=== PATIENT | female | born 1965 | race Caucasian/White ===

== ENCOUNTER 2021-05-14 06:58 | Day surgery (SDC) | payer OTHER ==
[2021-05-14] MEDS ORDERED: Lactated Ringers 1,000 ML IV SCH (07:00)
[2021-05-14] MEDS ORDERED: Sodium Chloride 0.9% 10 ML Syringe FLUSH PRN (07:00)
[2021-05-14] MEDS ORDERED: Propofol 200 MG/20 ML SDV ONE ×2 (07:38→09:33)
[2021-05-14] MEDS ORDERED: fentaNYL 100 MCG/2 ML SDV ONE (07:38)
[2021-05-14 09:58] VITALS: BP 126/64; PULSE 72
--- NOTE | 2021-05-14 10:20 | OR ---
PREOPERATIVE DIAGNOSIS: History of colon polyps. POSTOPERATIVE DIAGNOSIS: History of colon polyps. PROCEDURE PERFORMED: Total flexible colonoscopy with biopsies. ANESTHESIA: MAC anesthesia. COMPLICATIONS: None apparent. BLOOD LOSS: Minimal. FINDINGS: Sigmoid polyp, 3 mm, cold forceps. Start time 0907, cecum 0918, stop 0929. BOWEL PREP: [place] class 3. INDICATIONS: Ms. Mendoza is a 56-year-old female with a history of colon polyps. She denies any bloody or dark black stools and has no family history of colon cancer. She is here for colonoscopy. Her last scope was 6 years ago. DETAILS OF PROCEDURE: After informed consent was obtained, the patient was brought to the procedure room, placed in left lateral decubitus position. MAC anesthesia was induced per Anesthesia colleagues without incident. The colonoscope was introduced in the rectum and advanced all the way to the cecum. Appendiceal orifice and terminal ileum were photographed to confirm the cecum. The colonoscope was then slowly withdrawn. No pathology was identified except for what was mentioned in the above finding section. A retroflexed view was obtained, and the colonoscope was removed. The patient was awoken from anesthesia by Anesthesia colleagues without incident. PATHOLOGY: Colon, sigmoid, polyp Hyperplastic polyp. Recommend repeat screening colonoscopy in 5 years. RKM: 05/14/2021 09:35:52 MODL: 05/14/2021 10:05:53 /[id number] MTDD
--- NOTE | 2021-05-25 11:41 | LETTER ---
05/25/2021 Jennifer Alves [address] [place] [address], [place] [id number] RE: JENNIFER ALVES : 1965 Dear Ms. Alves: I am writing to inform you the pathology results of your recent colonoscopy. We removed 1 polyp. This was a hyperplastic polyp, which is completely benign. You will need a repeat colonoscopy in 5 years. Warmest regards,
== END 2021-05-14 10:37 | disposition home or self-care (01) ==
LOC: VM.SDS 06:58
PROVIDERS: ATTEND Student in an Organized Health Care Education/Training Program
DX: Z12.11 Encounter for screening for malignant neoplasm of colon (principal); K63.5 Polyp of colon; E03.9 Hypothyroidism, unspecified; F41.9 Anxiety disorder, unspecified; E66.3 Overweight; Z98.890 Other specified postprocedural states; Z90.49 Acquired absence of other specified parts of digestive tract; Z79.899 Other long term (current) drug therapy; Z88.8 Allergy status to other drugs, medicaments and biological substances; Z87.891 Personal history of nicotine dependence; Z68.30 Body mass index [BMI] 30.0-30.9, adult
CPT/HCPCS: 00812; 45380; J2704; J3010; J7120